=== PATIENT | female | born 2000 | race Caucasian/White ===

== ENCOUNTER 2023-11-19 22:13 | Emergency (ER) | payer OTHER ==
[~2023-11-19] VITALS: Ht 182.9 cm; Wt 90.9 kg
[2023-11-19 22:19] VITALS: BP 117/67; PULSE 85; RESP 16; TEMP 97.5
[2023-11-19 23:09] LABS: BASOPHILS % (AUTO) 0.2 % (0.0-2.0); EOSINOPHILS % (AUTO) 2.4 % (1.0-6.0); HEMATOCRIT 36.7 % (36-46); HEMOGLOBIN 12.5 g/dL (12.0-16.0); LYMPHOCYTES # (AUTO) 2.3 K/uL (1.0-4.8); LYMPHOCYTES % (AUTO) 31.2 % (22.0-44.0); MEAN CORPUSCULAR HGB CONC 34.1 G/dL (31.0-37.0); MEAN CORPUSCULAR VOLUME 88 fL (80-100); MONOCYTES # (AUTO) 0.6 K/uL (0.1-1.0); MONOCYTES % (AUTO) 8.5 % (2.0-9.0); NEUTROPHILS # (AUTO) 4.3 K/uL (1.8-7.7); NEUTROPHILS % (AUTO) 57.7 % (40.0-70.0); PLATELET COUNT (AUTO) 216 K/uL (150-450); RED BLOOD CELL COUNT(AUTO) 4.17 MIL/uL (4.00-5.20); RED CELL DISTRIBUTION WIDTH 14.5 % (11.5-14.5); WHITE BLOOD COUNT (AUTO) 7.5 K/uL (4.5-11.0)
[2023-11-19 23:31] LABS: ANION GAP 10 mmol/L (8-16); CALCIUM, TOTAL 8.7 mg/dL (8.8-10.5); CARBON DIOXIDE 22 mmol/L (22-29); CHLORIDE 105 mmol/L (98-107); CREATININE 0.73 mg/dL (0.60-1.30); GLOMERULAR FILTR. RATE CALC > 60 mL/min (>60); GLUCOSE,RANDOM 94 mg/dL (70-110); POTASSIUM 3.5 mmol/L (3.5-5.1); SODIUM SERUM 137 mmol/L (136-145); UREA NITROGEN, BLOOD 10 mg/dL (7-18)
[2023-11-19] MEDS: PYRIDOXINE HCL 50 MG TABLET PO ONE (23:37)
[2023-11-19] MEDS: ACETAMINOPHEN 500 MG TABLET PO ONE (23:37)
[2023-11-19] MEDS: DOXYLAMINE SUCCINATE 25 MG TABLET PO ONE (23:38)
[2023-11-19 23:49] LABS: ALANINE AMINOTRANSFERASE 9 U/L (12-78); ALBUMIN 3.5 g/dL (3.4-5.0); ALKALINE PHOSPHATASE 82 U/L (46-116); ASPARTATE AMINOTRANSFERASE 10 U/L (15-37); BILIRUBIN,TOTAL 0.3 mg/dL (0.1-1.0); HCG,QUANTITATIVE 105766 mIU/mL (0-6)
[2023-11-19 23:51] LABS: APPEARANCE,URINE HAZY (CLEAR); BILIRUBIN,URINE NEGATIVE (NEGATIVE); COLOR,URINE LIGHT YELLOW (YELLOW); GLUCOSE, URINE (UA) NEGATIVE (NEGATIVE); KETONES,URINE NEGATIVE (NEGATIVE); LEUKOCYTE ESTERASE ,URINE NEGATIVE (NEGATIVE); NITRATE,URINE NEGATIVE (NEGATIVE); OCCULT BLOOD,URINE NEGATIVE (NEGATIVE); PH,URINE 6.5 (5.0-8.0); PROTEIN,URINE NEGATIVE (NEGATIVE); UROBILINOGEN,URINE <=1.0 mg/dL (<=1.0)
[2023-11-20] MEDS ORDERED: ACET-3385 PO (00:19)
[2023-11-20] MEDS ORDERED: DOXY1TAB3 PO (00:19)
== END 2023-11-20 00:35 | disposition home or self-care (01) ==
LOC: EMS 22:17
DX: O99.611 Diseases of the digestive system complicating pregnancy, first trimester (principal); Z3A.08 8 weeks gestation of pregnancy
CPT/HCPCS: 76801; 80053; 81003; 84702; 85025; 99284

== ENCOUNTER 2023-12-01 15:04 | Emergency (ER) | payer OTHER ==
[~2023-12-01] VITALS: Ht 182.9 cm; Wt 90.9 kg
[~2023-12-01 15:04] MED LIST: ACET-3385 PO; DOXY1TAB3 PO
[2023-12-01 15:07] VITALS: BP 112/55; PULSE 96; RESP 18; TEMP 98.3
[2023-12-01] MEDS ORDERED: PREN-217 PO (15:09)
[2023-12-01 16:03] LABS: COVID AG,FIA SOURCE NASAL SWAB
[2023-12-01 16:25] LABS: SARS-COV2 (COVID) ANTIGEN,FIA Negative (Negative)
[2023-12-01 16:26] LABS: RAPID GROUP A STREP NEGATIVE (NEGATIVE)
[2023-12-01 16:32] LABS: INFLUENZA TYPE A NEGATIVE FOR TYPE A (NEGATIVE); INFLUENZA TYPE B NEGATIVE FOR TYPE B (NEGATIVE)
[2023-12-01] MEDS ORDERED: HYDR-4062 PO (22:53)
[2023-12-01] MEDS ORDERED: IBUP-1554 PO (22:53)
[2023-12-01] MEDS ORDERED: GUAIF10 PO (22:53)
== END 2023-12-01 19:14 | disposition left against medical advice (07) ==
LOC: EMS 15:17
DX: J02.9 Acute pharyngitis, unspecified (principal); R51.9 Headache, unspecified; Z53.21 Procedure and treatment not carried out due to patient leaving prior to being seen by health care provider; Z20.822 Contact with and (suspected) exposure to COVID-19
CPT/HCPCS: 87430; 87804

== ENCOUNTER 2023-12-01 21:30 | Emergency (ER) | payer OTHER ==
[~2023-12-01] VITALS: Ht 182.9 cm; Wt 91.0 kg
[~2023-12-01 21:30] MED LIST changes: +PREN-217 PO
[2023-12-01 22:45] VITALS: BP 132/67; PULSE 76; RESP 20; TEMP 98.3
[2023-12-01] MEDS ORDERED: HYDR-4062 PO (22:53)
[2023-12-01] MEDS ORDERED: GUAIF10 PO (22:53)
[2023-12-01] MEDS ORDERED: IBUP-1554 PO (22:53)
[2023-12-01] MEDS: HYDROCODONE/ACETAMINOPHEN 5-325 MG TABLET PO ONE (23:08)
[2023-12-01] MEDS: GuaiFENesin [SUGAR-FREE] 200 MG/10 ML SOLUTION UDCUP PO ONE (23:08)
[2023-12-01] MEDS: IBUPROFEN 600 MG TABLET PO ONE (23:08)
== END 2023-12-02 01:32 | disposition home or self-care (01) ==
LOC: EMS 21:30
DX: O26.891 Other specified pregnancy related conditions, first trimester (principal); J02.8 Acute pharyngitis due to other specified organisms; F12.90 Cannabis use, unspecified, uncomplicated; Z20.822 Contact with and (suspected) exposure to COVID-19; Z3A.10 10 weeks gestation of pregnancy
CPT/HCPCS: 99284; Z7502; Z7610

== ENCOUNTER 2024-02-19 09:38 | Emergency (ER) | payer OTHER ==
[~2024-02-19] VITALS: Ht 175.3 cm; Wt 68.2 kg
[~2024-02-19 09:38] MED LIST changes: -ACET-3385 PO; -DOXY1TAB3 PO; +GUAIF10 PO; +HYDR-4062 PO; +IBUP-1554 PO
[2024-02-19 09:50] VITALS: TEMP 98.1
[2024-02-19] MEDS ORDERED: DIPH25TA51 PO (11:18)
[2024-02-19 11:19] VITALS: BP 116/58; PULSE 90; RESP 18
[2024-02-19] MEDS: DiphenhydrAMINE/ZINC ACET 30 GM CREAM TP ONE (11:25)
== END 2024-02-19 11:36 | disposition home or self-care (01) ==
LOC: EMS 09:38
DX: L29.9 Pruritus, unspecified (principal); F12.90 Cannabis use, unspecified, uncomplicated
CPT/HCPCS: 99282; Z7502; Z7610

== ENCOUNTER 2024-04-02 19:55 | Emergency (ER) | payer OTHER ==
[~2024-04-02] VITALS: Ht 182.9 cm; Wt 90.9 kg
[~2024-04-02 19:55] MED LIST changes: +DIPH25TA51 PO; -GUAIF10 PO; -HYDR-4062 PO; -IBUP-1554 PO
[2024-04-02 20:34] VITALS: TEMP 98.7
[2024-04-02 21:22] LABS: APPEARANCE,URINE HAZY (CLEAR); BILIRUBIN,URINE NEGATIVE (NEGATIVE); COLOR,URINE LIGHT YELLOW (YELLOW); GLUCOSE, URINE (UA) NEGATIVE (NEGATIVE); KETONES,URINE NEGATIVE (NEGATIVE); LEUKOCYTE ESTERASE ,URINE LARGE (NEGATIVE); NITRATE,URINE NEGATIVE (NEGATIVE); OCCULT BLOOD,URINE MODERATE (NEGATIVE); PH,URINE 6.5 (5.0-8.0); PROTEIN,URINE 30-70 mg/dL (NEGATIVE); SPECIFIC GRAVITIY, URINE 1.013 (1.003-1.030); UROBILINOGEN,URINE <=1.0 mg/dL (<=1.0)
[2024-04-02 21:39] LABS: BACTERIA,URINE Few /HPF (None Seen); SQUAMOUS EPITHELIAL CELL,UR Rare /LPF (None Seen); WBC,URINE 26-50 /HPF (0-5)
[2024-04-02 22:11] LABS: BASOPHILS % (AUTO) 0.1 % (0.0-2.0); EOSINOPHILS % (AUTO) 0.7 % (1.0-6.0); HEMATOCRIT 36.1 % (36-46); HEMOGLOBIN 12.2 g/dL (12.0-16.0); LYMPHOCYTES # (AUTO) 1.7 K/uL (1.0-4.8); LYMPHOCYTES % (AUTO) 16.5 % (22.0-44.0); MEAN CORPUSCULAR HEMOGLOBIN 31.9 pg (26.0-34.0); MEAN CORPUSCULAR HGB CONC 33.7 G/dL (31.0-37.0); MEAN CORPUSCULAR VOLUME 95 fL (80-100); MONOCYTES # (AUTO) 0.7 K/uL (0.1-1.0); NEUTROPHILS % (AUTO) 75.7 % (40.0-70.0); PLATELET COUNT (AUTO) 184 K/uL (150-450); RED BLOOD CELL COUNT(AUTO) 3.82 MIL/uL (4.00-5.20); RED CELL DISTRIBUTION WIDTH 13.1 % (11.5-14.5); WHITE BLOOD COUNT (AUTO) 10.5 K/uL (4.5-11.0)
[2024-04-02 22:23] LABS: ANION GAP 10 mmol/L (8-16); CALCIUM, TOTAL 8.7 mg/dL (8.8-10.5); CARBON DIOXIDE 23 mmol/L (22-29); CHLORIDE 104 mmol/L (98-107); CREATININE 0.69 mg/dL (0.60-1.30); GLOMERULAR FILTR. RATE CALC > 60 mL/min (>60); GLUCOSE,RANDOM 114 mg/dL (70-110); POTASSIUM 3.4 mmol/L (3.5-5.1); SODIUM SERUM 137 mmol/L (136-145); UREA NITROGEN, BLOOD 6 mg/dL (7-18)
[2024-04-02 22:52] LABS: HCG,QUANTITATIVE 4031 mIU/mL (0-6)
[2024-04-02] MEDS: CEPHALEXIN MONOHYDRATE 500 MG CAPSULE PO ONE (23:36)
[2024-04-02] MEDS: ACETAMINOPHEN 325 MG TABLET PO ONE (23:36)
[2024-04-02] MEDS: SODIUM CHLORIDE 0.9% 1,000 ML IV ONE (23:45)
[2024-04-03] MEDS ORDERED: CEPH-558 PO (01:53)
[2024-04-03 02:09] VITALS: BP 111/61; PULSE 95; RESP 18; O2SAT 96
== END 2024-04-03 02:10 | disposition home or self-care (01) ==
LOC: EMS 19:55
DX: O23.43 Unspecified infection of urinary tract in pregnancy, third trimester (principal); N39.0 Urinary tract infection, site not specified; R10.31 Right lower quadrant pain; O99.323 Drug use complicating pregnancy, third trimester; F12.90 Cannabis use, unspecified, uncomplicated; Z86.73 Personal history of transient ischemic attack (TIA), and cerebral infarction without residual deficits; Z87.59 Personal history of other complications of pregnancy, childbirth and the puerperium
CPT/HCPCS: 99284; 96360; 80048; 81001; 84702; 85025; 36415; 87086; 87186; 76815; J7030